=== PATIENT | female | born 1985 | race Caucasian/White ===

== ENCOUNTER 2019-04-09 12:19 | Emergency (ER) | payer BC, OTHER ==
[~2019-04-09] VITALS: Ht 154.9 cm; Wt 81.0 kg
[~2019-04-09 12:19] MED LIST: ACET325T14 PO; ANXIETY MED; IBUP-1222 PO; NITR100C PO; No meds per pt.; OXYC-302 PO
--- NOTE | 2019-04-09 12:51 | NUR ---
PT CAME IN CO OF HEADACHE AND NASUEA THAT STARTED AROUND 0530 THIS MORNING. "THERE WAS A BRIEF PERIOD WHERE I WAS UNABLE TO TALK. SLURRED SPEECH. FELT LIKE IWAS TRYING TO TALK BUT WORDS WERE NOT COMING OUT." WITNESSED THIS. PT IS AOX4. BLANKET PROVIDED. CALL LIGHT WITHIN REACH
[2019-04-09] MEDS ORDERED: KETOROLAC 30 MG/1 ML IM ONE (13:30)
[2019-04-09] MEDS ORDERED: KETOROLAC 30 MG/1 ML ONE (13:37)
--- NOTE | 2019-04-09 13:45 | NUR ---
PT IN [place]
[2019-04-09 14:18] VITALS: BP 111/82
== END 2019-04-09 15:35 ==
LOC: ED 14:54
DX: G43.909 Migraine, unspecified, not intractable, without status migrainosus (principal)
CPT/HCPCS: 70450; 96372; 99284; J1885